=== PATIENT | female | born 1985 | race Hispanic/Latino ===

== ENCOUNTER 2023-11-05 05:25 | Emergency (ER) | payer OTHER ==
[2023-11-05] MEDS ORDERED: Ketorolac Tromethamine 30 MG (1 mL) VIAL ONE (05:58)
[2023-11-05] MEDS ORDERED: Metoclopramide HCl 10 MG (2 mL) VIAL ONE (05:58)
[2023-11-05] MEDS ORDERED: diphenhydrAMINE 50 MG/ML VIAL ONE (05:58)
== END 2023-11-05 06:55 | disposition home or self-care (01) ==
LOC: CSHERS 05:25
DX: G43.909 Migraine, unspecified, not intractable, without status migrainosus (principal); E11.9 Type 2 diabetes mellitus without complications; I10 Essential (primary) hypertension; F17.210 Nicotine dependence, cigarettes, uncomplicated; Z79.899 Other long term (current) drug therapy; Z79.84 Long term (current) use of oral hypoglycemic drugs
CPT/HCPCS: 96374; 96375; J1200; J1885; J2765